=== PATIENT | male | born 1965 | race Caucasian/White ===

== ENCOUNTER 2017-12-21 00:47 | Emergency (ER) | payer BC ==
[~2017-12-21] VITALS: Ht 177.8 cm; Wt 90.7 kg
--- NOTE | 2017-12-21 00:59 | NUR ---
DR DIMAS LAUREN MD AT BEDSIDE FOR MSE.
[2017-12-21] MEDS ORDERED: EPINEPHRINE 1 MG/1 ML AMP ONE (01:08)
[2017-12-21] MEDS ORDERED: FAMOTIDINE 20 MG TABLET PO ONE (01:15)
[2017-12-21] MEDS ORDERED: FAMOTIDINE 20 MG TABLET ONE (01:19)
[2017-12-21] MEDS ORDERED: EPINEPHRINE 1 MG/1 ML AMP SQ ONE (01:30)
[2017-12-21] MEDS ORDERED: MAG HYDROX/AL HYDROX/SIMETH 30 ML LIQUID UDC ONE (01:42)
[2017-12-21] MEDS ORDERED: LIDOCAINE VISCUS 2% 15 ML UDC ONE (01:42)
[2017-12-21] MEDS ORDERED: MAG HYDROX/AL HYDROX/SIMETH 30 ML LIQUID UDC PO ONE (01:45)
[2017-12-21] MEDS ORDERED: LIDOCAINE VISCUS 2% 15 ML UDC MM ONE (01:45)
[2017-12-21] MEDS ORDERED: FAMOTIDINE. 20 MG/2 ML VIAL IV ONE ×2 (02:00→02:07)
[2017-12-21] MEDS ORDERED: diphenhydrAMINE 50 MG/1 ML VIAL IV ONE (02:00)
[2017-12-21] MEDS ORDERED: IV NORMAL SALINE 1000 ML BAG IV ONE (02:00)
[2017-12-21] MEDS ORDERED: diphenhydrAMINE 50 MG/1 ML VIAL ONE (02:07)
--- NOTE | 2017-12-21 02:15 | NUR ---
RADIOLOGY AT BEDSIDE FOR XRAY.
[2017-12-21 03:13] VITALS: BP 134/81
--- NOTE | 2017-12-21 03:24 | NUR ---
Patient discharged to home in stable conditon. Written and verbal after care instructions given. Patient verbalizes understanding of instructions. IV removed, w/ catheter intact. Pressure applied. No bleeding noted at site. Pt took all personal belongings.
[2017-12-22] MEDS ORDERED: DIPH25CA83 PO (22:55)
[2017-12-22] MEDS ORDERED: HYDR-3326 PO (22:55)
== END 2017-12-21 03:25 | disposition home or self-care (01) ==
LOC: ER 00:53
DX: J02.9 Acute pharyngitis, unspecified (principal); T38.0X5A Adverse effect of glucocorticoids and synthetic analogues, initial encounter; Z88.0 Allergy status to penicillin; Y92.89 Other specified places as the place of occurrence of the external cause
CPT/HCPCS: 36415; 70360; 86403; 87070; A4663; J0171; J1200; J3490; J7030

== ENCOUNTER 2017-12-21 12:46 | Emergency (ER) | payer BC ==
[~2017-12-21] VITALS: Ht 172.7 cm; Wt 95.3 kg
--- NOTE | 2017-12-21 13:10 | NUR ---
Patient discharged to home in stable conditon. Written and verbal after care instructions given. Patient verbalizes understanding of instructions.no difficulty swallowing
[2017-12-22] MEDS ORDERED: HYDR-3326 PO (22:55)
[2017-12-22] MEDS ORDERED: DIPH25CA83 PO (22:55)
== END 2017-12-21 13:10 | disposition home or self-care (01) ==
LOC: ER 12:46
DX: J02.9 Acute pharyngitis, unspecified (principal); Z88.8 Allergy status to other drugs, medicaments and biological substances; Z88.0 Allergy status to penicillin
CPT/HCPCS: A4663

== ENCOUNTER 2017-12-22 21:56 | Inpatient (IN) | payer BC ==
[~2017-12-22] VITALS: Ht 167.6 cm; Wt 97.5 kg
[2017-12-22] MEDS ORDERED: MORPHINE SULFATE 4 MG/1 ML DISP.SYRIN IV ONE (22:15)
[2017-12-22] MEDS ORDERED: methylPREDNISolone SOD SUCC 125 MG/2 ML VIAL IV ONE (22:15)
[2017-12-22 22:21] LABS: BASOPHILS # (AUTO) 0.1 K/uL (0.0-8.0); BASOPHILS % (AUTO) 1.1 % (0.0-2.0); EOSINOPHILS # (AUTO) 0.2 K/uL (0.0-0.7); HEMATOCRIT 43.4 % (36.7-47.1); LYMPHOCYTES # (AUTO) 3.3 K/uL (20.0-40.0); LYMPHOCYTES % (AUTO) 27.2 % (20.5-51.5); MEAN CORPUSCULAR HEMOGLOBIN 30.9 uug (23.8-33.4); MEAN CORPUSCULAR HGB CONC 35 g/dL (32.5-36.3); MEAN CORPUSCULAR VOLUME 89.5 fL (73.0-96.2); MONOCYTES # (AUTO) 0.6 K/uL (2.0-10.0); MONOCYTES % (AUTO) 5.2 % (0.0-11.0); NEUTROPHILS # (AUTO) 7.9 K/uL (1.8-8.9); NEUTROPHILS % (AUTO) 64.5 % (38.5-71.5); PLATELET COUNT (AUTO) 205 K/uL (152-348); RED BLOOD CELL COUNT(AUTO) 4.86 MIL/uL (4.06-5.63); WHITE BLOOD COUNT (AUTO) 12.2 K/uL (3.6-10.2)
[2017-12-22] MEDS ORDERED: MORPHINE SULFATE 4 MG/1 ML DISP.SYRIN ONE (22:21)
[2017-12-22] MEDS ORDERED: methylPREDNISolone SOD SUCC 125 MG/2 ML VIAL ONE (22:21)
[2017-12-22 22:28] LABS: CREATININE 1.2 mg/dL (0.6-1.3); POTASSIUM 3.7 mmol/L (3.5-5.1)
[2017-12-22 22:34] LABS: BILIRUBIN,DIRECT 0.1 mg/dL (0.0-0.2); BILIRUBIN,TOTAL 0.4 mg/dL (0.2-1.0); TOTAL PROTEIN, SERUM 6.3 g/dL (6.4-8.2)
[2017-12-22] MEDS ORDERED: KETOROLAC TROMETHAMINE 30 MG INJ ONE (22:42)
[2017-12-22] MEDS ORDERED: HYDROMORPHONE 1 MG/1 ML DISP.SYRIN IV ONE (22:45)
[2017-12-22] MEDS ORDERED: KETOROLAC TROMETHAMINE 30 MG INJ IVP ONE (22:45)
--- NOTE | 2017-12-22 22:45 | NUR ---
PAGED [facility] FOR PANEL CALL.
[2017-12-22] MEDS ORDERED: DIPH25CA83 PO (22:55)
[2017-12-22] MEDS ORDERED: HYDR-3326 PO (22:55)
[2017-12-22] MEDS ORDERED: HYDROMORPHONE 2 MG/1 ML DISP.SYRIN ONE (22:57)
--- NOTE | 2017-12-22 23:03 | NUR ---
Pt. admitted to Med/Surg , under care of Dr. Bill Hahn. Diagnosis: Serum Sickness. Belongs List completed. Report given to Candelario CHRISTIE.
--- NOTE | 2017-12-22 23:21 | NUR ---
MRSA swab collected and sent to lab.
[2017-12-22 23:40] VITALS: BP 119/73
--- NOTE | 2017-12-22 23:40 | NUR ---
RECEIVED NURSE REPORT FROM LEONIDAS BATRES RN. PT ARRIVED ON MED-SURG FLOOR AT 2330 VIA GURNEY. PT RESTING IN BED, C/O BILATERAL WRIST AND SHOULDER PAIN 02/05. PT DENIES C/P, SOB, N/V. PT WAS MEDICATED WITH VARIOUS ANALGESICS IN THE ER. 20 G IV ACCESS IN R HAND REMOVED, NEW IV ACCESS ESTABLISHED 20 G IN L FOREARM, SALINE LOCKED. BED IN LOW AND LOCKED POSITION WITH BILATERAL UPPER SIDERAILS UP. PT BELONGING CHECKLIST DONE. CALL LIGHT WITHIN REACH. WILL F/U W/ MD ADMISSION ORDERS. PT'S VS WNL.
[2017-12-23] MEDS ORDERED: ACETAMINOPHEN 325 MG TABLET PO PRN
[2017-12-23] MEDS ORDERED: HYDROCODONE/APAP 5-325MG TABLET PO PRN
[2017-12-23] MEDS ORDERED: ZOLPIDEM 5 MG TABLET PO PRN
[2017-12-23] MEDS ORDERED: ONDANSETRON 4 MG/2 ML VIAL IV PRN
[2017-12-23] MEDS ORDERED: MAGNESIUM HYDROXIDE 30 ML LIQUID UDC PO PRN
[2017-12-23] MEDS: diphenhydrAMINE 25 MG CAP PO SCH ×3 (00:32→11:03)
--- NOTE | 2017-12-23 03:35 | NUR ---
PT C/O BILATERAL WRIST AND SHOULDER PAIN 12/06. DILAUDID 2MG VIAL OBTAINED FROM [facility]!, DID NOT ADMIN DUE TO LOW BP. WILL RETURN TO PHARMACY IN THE MORNING.
[2017-12-23 04:00] VITALS: BP 103/59
[2017-12-23] MEDS: HYDROMORPHONE 2 MG/1 ML DISP.SYRIN IV PRN ×2 (05:44→10:03)
--- NOTE | 2017-12-23 05:54 | NUR ---
PT C/O 01/06 PAIN. BP WNL. MEDICATED W/ DILAUDID 1 MG PER MD ORDERS. PREVIOUS DILAUDID DISPENSED FROM [facility] WAS USED, NO MORE DILAUDID TO RETURN TO PHARMACY.
[2017-12-23 06:36] LABS: BASOPHILS % (AUTO) 0.2 % (0.0-2.0); EOSINOPHILS % (AUTO) 0.1 % (0.0-7.0); HEMATOCRIT 45.4 % (36.7-47.1); HEMOGLOBIN 15.6 g/dL (12.5-16.3); LYMPHOCYTES % (AUTO) 6.6 % (20.5-51.5); MEAN CORPUSCULAR HEMOGLOBIN 30.9 uug (23.8-33.4); MEAN CORPUSCULAR HGB CONC 34 g/dL (32.5-36.3); MEAN CORPUSCULAR VOLUME 90.3 fL (73.0-96.2); MONOCYTES # (AUTO) 0.4 K/uL (2.0-10.0); MONOCYTES % (AUTO) 2.7 % (0.0-11.0); NEUTROPHILS # (AUTO) 13.2 K/uL (1.8-8.9); NEUTROPHILS % (AUTO) 90.4 % (38.5-71.5); PLATELET COUNT (AUTO) 208 K/uL (152-348); RED BLOOD CELL COUNT(AUTO) 5.03 MIL/uL (4.06-5.63); WHITE BLOOD COUNT (AUTO) 14.6 K/uL (3.6-10.2)
[2017-12-23 06:44] LABS: BILIRUBIN,TOTAL 0.5 mg/dL (0.2-1.0); CREATININE 1.1 mg/dL (0.6-1.3); MAGNESIUM 2.1 mg/dL (1.8-2.4); PHOSPHOROUS 3.7 mg/dL (2.5-4.9); POTASSIUM 4.3 mmol/L (3.5-5.1); TOTAL PROTEIN, SERUM 6.5 g/dL (6.4-8.2)
[2017-12-23] MEDS ORDERED: PANTOPRAZOLE SODIUM 40 MG TABLET.DR PO SCH (07:00)
--- NOTE | 2017-12-23 07:42 | NUR ---
PATIENT RESTING COMFORTABLY IN BED. A/OX4, AMBULATORY, STABLE CONDITION, NO S/S OF DISTRESS. PAIN MANAGEMENT WILL BE PROVIDED. ALLERGIC REACTIONS WILL BE MONITORED AND MANAGED.
[2017-12-23] MEDS ORDERED: TRAMADOL HCL 50 MG TABLET PO PRN (10:30)
[2017-12-23] MEDS ORDERED: methylPREDNISolone SOD SUCC 40 MG/ML VIAL IV SCH (10:30)
[2017-12-23 11:23] VITALS: BP 100/63
[2017-12-23] MEDS ORDERED: IV NS 1000 ML 1,000 ML IV ONE (12:30)
--- NOTE | 2017-12-23 14:35 | NUR ---
patient discharged at this time in stable condition, no s/s of distress. vital signs stable. discharge instructions/education provided. discharge packet completed, copy made for patient. prescription given to patient. patient's form of transportation - . left medical floor safely. IV-access disconnected. id-band taken off.
[2017-12-25 08:06] LABS: COMPLEMENT, C3 SERUM 138 mg/dL (82-167); COMPLEMENT, C4 SERUM 19 mg/dL (14-44)
[2017-12-25 19:06] LABS: *IGG SUBCLASS 1 325 mg/dL (248-810); *IGG SUBCLASS 2 207 mg/dL (130-555); *IGG SUBCLASS 3 29 mg/dL (15-102); *IGG SUBCLASS 4 22 mg/dL (2-96); *IMMUNOGLOBULIN G, SERUM 645 mg/dL (700-1600)
== END 2017-12-23 14:35 | disposition home or self-care (01) | DRG 916 ==
LOC: ER 21:59 → MED 23:03
PROVIDERS: ADMIT Internal Medicine; ATTEND Internal Medicine
DX: T80.69XA Other serum reaction due to other serum, initial encounter (principal); E87.1 Hypo-osmolality and hyponatremia; M25.511 Pain in right shoulder; M25.542 Pain in joints of left hand; M25.541 Pain in joints of right hand; M25.532 Pain in left wrist; M25.531 Pain in right wrist; T50.Z95A Adverse effect of other vaccines and biological substances, initial encounter; Y92.89 Other specified places as the place of occurrence of the external cause; J32.9 Chronic sinusitis, unspecified; Z88.1 Allergy status to other antibiotic agents; Z88.0 Allergy status to penicillin; Z87.891 Personal history of nicotine dependence; E88.09 Other disorders of plasma-protein metabolism, not elsewhere classified; E83.51 Hypocalcemia; E66.9 Obesity, unspecified; Z68.34 Body mass index [BMI] 34.0-34.9, adult; Z98.890 Other specified postprocedural states; R73.9 Hyperglycemia, unspecified; R79.82 Elevated C-reactive protein (CRP)
CPT/HCPCS: 36415; 70030-TC; 71045; 83735; 84100; 84443; 85025; 85651; 86140; 86160; 93005; A4663; J1170; J1885; J2270; J2920; J2930; J7030; Q0163

== ENCOUNTER 2019-01-25 16:01 | Emergency (ER) | payer BC ==
[~2019-01-25] VITALS: Ht 177.8 cm; Wt 86.2 kg
[~2019-01-25 16:01] MED LIST: DIPH25CA83 PO; HYDR-3326 PO
[2019-01-25] MEDS ORDERED: KETOROLAC TROMETHAMINE 15 MG INJ IVP ONE (17:00)
[2019-01-25] MEDS ORDERED: IV NORMAL SALINE 1000 ML BAG IV ONE (17:00)
[2019-01-25] MEDS ORDERED: KETOROLAC TROMETHAMINE 15 MG INJ ONE (17:11)
[2019-01-25 17:24] LABS: BASOPHILS # (AUTO) 0.1 K/uL (0.0-8.0); BASOPHILS % (AUTO) 0.8 % (0.0-2.0); EOSINOPHILS # (AUTO) 0.1 K/uL (0.0-0.7); EOSINOPHILS % (AUTO) 1.3 % (0.0-7.0); HEMATOCRIT 47.5 % (36.7-47.1); LYMPHOCYTES # (AUTO) 2.6 K/uL (20.0-40.0); MEAN CORPUSCULAR HGB CONC 34 g/dL (32.5-36.3); MEAN CORPUSCULAR VOLUME 91.7 fL (73.0-96.2); MONOCYTES # (AUTO) 0.7 K/uL (2.0-10.0); MONOCYTES % (AUTO) 6.7 % (0.0-11.0); NEUTROPHILS # (AUTO) 6.3 K/uL (1.8-8.9); NEUTROPHILS % (AUTO) 64.2 % (38.5-71.5); PLATELET COUNT (AUTO) 146 K/uL (152-348); RED BLOOD CELL COUNT(AUTO) 5.18 MIL/uL (4.06-5.63); WHITE BLOOD COUNT (AUTO) 9.8 K/uL (3.6-10.2)
[2019-01-25 17:29] LABS: CREATININE 1.1 mg/dL (0.6-1.3)
[2019-01-25 17:34] LABS: BILIRUBIN,DIRECT 0.1 mg/dL (0.0-0.2); BILIRUBIN,TOTAL 0.7 mg/dL (0.2-1.0); TOTAL PROTEIN, SERUM 6.9 g/dL (6.4-8.2)
[2019-01-25] MEDS ORDERED: IOHEXOL 300MG/ML 100 ML INFUS..BTL ONE (18:02)
[2019-01-25] MEDS ORDERED: SWABABLE VALVE TRANSFER SET EA MC ONE (18:02)
[2019-01-25] MEDS ORDERED: IV NORMAL SALINE 250 ML IV ONE (18:03)
--- NOTE | 2019-01-25 19:03 | NUR ---
Patient discharged to home in stable conditon. Written and verbal after care instructions given. Patient verbalizes understanding of instructions.pt walks i nsteady gait. pt says feels better.
[2019-01-25 19:04] VITALS: BP 121/71
== END 2019-01-25 19:07 | disposition home or self-care (01) ==
LOC: ER 16:01
DX: K57.32 Diverticulitis of large intestine without perforation or abscess without bleeding (principal); F17.210 Nicotine dependence, cigarettes, uncomplicated; Z88.0 Allergy status to penicillin; Z88.8 Allergy status to other drugs, medicaments and biological substances; Z79.899 Other long term (current) drug therapy
CPT/HCPCS: 36415; 74177; 80048; 80076; 83690; 84484; 85025; 85730; 96374; 99284; J1885; Q9967; 70030-TC; A4663; J7030; J7050